=== PATIENT | female | born 1955 | race African-American/Black ===

== ENCOUNTER 2016-11-15 20:58 | Emergency (ER) | payer SELFPAY ==
[~2016-11-15] VITALS: Ht 170.2 cm; Wt 84.5 kg
[2016-11-15 21:13] VITALS: Ht 170.2 cm; Wt 84.5 kg
[2016-11-15 23:38] LABS: URINE BLOOD (Dip) POC 2+ (NEGATIVE)
[2016-11-15] MEDS ORDERED: CEPH-443 PO (23:40)
--- NOTE | 2016-11-15 23:44 | ERD ---
ER Documentation Chief Complaint Date/Time DATE: 11/15/16 TIME: 23:41 Chief Complaint painful/burning urination x 4 days HPI 61-year-old female with no significant past medical history presents to the ED complaining of dysuria and burning with urination that started 5 days ago. States that this feels like her urinary tract infections that she has had in the past. Reports that she has been drinking cranberry juice and cups of water but it has not helped with her symptoms. States that she wiped yesterday there was slight streaks of blood tinged urine. States that she no longer gets her menses. States that she is not sexually active. Denies any vaginal bleeding, vaginal discharge, abdominal pain, nausea, vomiting, diarrhea, melena. ROS All systems reviewed and are negative except as per history of present illness. Medications Home Meds Active Scripts Cephalexin* (Keflex*) 500 Mg Capsule, 500 MG PO QID for 7 Days, CAP Prov:MICHEL MASTERSON PA-C 11/15/16 Allergies Allergies: Coded Allergies: No Known Drug Allergies (Verified Allergy, Unknown, 11/15/16) PMhx/Soc Hx Alcohol Use: No Hx Substance Use: No Hx Tobacco Use: Yes (1 PACK/2 DAYS) Smoking Status: Current every day smoker Physical Exam Vitals Vital Signs Date Time Temp Pulse Resp B/P Pulse Ox O2 Delivery O2 Flow Rate FiO2 11/15/16 21:13 98.9 84 20 142/83 99 Physical Exam Const: [id number], well-nourished. In no acute distress. Head: Atraumatic, normocephalic Eyes: Normal Conjunctiva without injection. No purulent discharge. ENT: Normal external ear, nose. Moist oropharynx without tonsillar exudates. Non -erythematous pharynx. Uvula midline. No drooling. No trismus. Neck: No cervical midline tenderness. Full range of motion. No meningismus. No cervical lymphadenopathy. No JVD. Resp: Clear to auscultation bilaterally. No wheezing, rhonchi, rales, or crackles. No accessory muscle use. No retractions. Cardio: Regular rate and rhythm. No murmurs, rubs or gallops. Abd: Soft, nontender, non distended. Normal bowel sounds. No palpable masses. No rebound tenderness. No guarding. Negative McBurney's point. Negative psoas sign. Negative obturator sign. Skin: No petechiae or rashes Back: No midline tenderness. No CVA tenderness. Ext: No cyanosis, or edema. Neur: Awake and alert. Normal gait. Normal coordination. Psych: Normal Mood and Affect Results 24 hrs Laboratory Tests Test 11/15/16 23:39 Bedside Urine Blood 2+ Bedside Urine Glucose (UA) Negative Bedside Urine Ketones (LAB) Negative Bedside Urine Leukocyte Esterase (L 1+ Bedside Urine Nitrite (LAB) Negative Bedside Urine Protein (LAB) 1+ Bedside Urine pH (LAB) 6.0 Procedures/MDM This is a 61-year-old female with no significant past medical history presents the ED complaining of dysuria and burning with urination. Patient is afebrile and nontoxic-appearing. Patient has normal vital signs. A urine dip was ordered to further evaluate patient. Patient was noted to have hematuria and 1 + leukocyte esterase. Since patient is symptomatic, patient is appropriate for outpatient antibiotics. Patient will be prescribed a course of Keflex for 7 days. Patient does not have any flank pain. No CVA tenderness. Low suspicion for pyelonephritis, septic renal stone, gastritis, GERD, peptic ulcer disease, cholecystitis, choledocholithiasis, cholangitis, pancreatitis, appendicitis, bowel obstruction, ileus, volvulus, hepatitis, perforated viscus, diverticulitis , abdominal hernia, acute abdomen, mesenteric ischemia or other emergent conditions. Discharge medications: Keflex Follow up with primary care physician in 1-2 days for referral to supervisor order takers. Instructed patient to return to the ED sooner for any worsening symptoms. Patient's questions were answered. Patient understood and agreed with discharge plan. Patient discharged stable. Departure Diagnosis: Primary Impression: Urinary tract infection Urinary tract infection type: site unspecified Hematuria presence: with hematuria Qualified Code: N39.0 - Urinary tract infection with hematuria, site unspecified Condition: Stable Patient Instructions: Understanding Urinary Tract Infections (UTIs) Referrals: [facility] YOU HAVE RECEIVED A MEDICAL SCREENING EXAM AND THE RESULTS INDICATE THAT YOU DO NOT HAVE A CONDITION THAT REQUIRES URGENT TREATMENT IN THE EMERGENCY DEPARTMENT. FURTHER EVALUATION AND TREATMENT OF YOUR CONDITION CAN WAIT UNTIL YOU ARE SEEN IN YOUR DOCTORS OFFICE WITHIN THE NEXT 1-2 DAYS. IT IS YOUR RESPONSIBILITY TO MAKE AN APPOINTMENT FOR FOLOW-UP CARE. IF YOU HAVE A PRIMARY DOCTOR --you should call your primary doctor and schedule an appointment IF YOU DO NOT HAVE A PRIMARY DOCTOR YOU CAN CALL OUR PHYSICIAN REFERRAL HOTLINE AT IF YOU CAN NOT AFFORD TO SEE A PHYSICIAN YOU CAN CHOSE FROM THE FOLLOWING [facility] [address] [facility] [address] [facility] [address] [facility] [address] [facility] [address] [facility] [facility] [address] [facility]. [facility] YOU HAVE RECEIVED A MEDICAL SCREENING EXAM AND THE RESULTS INDICATE THAT YOU DO NOT HAVE A CONDITION THAT REQUIRES URGENT TREATMENT IN THE EMERGENCY DEPARTMENT. FURTHER EVALUATION AND TREATMENT OF YOUR CONDITION CAN WAIT UNTIL YOU ARE SEEN IN YOUR DOCTORS OFFICE WITHIN THE NEXT 1-2 DAYS. IT IS YOUR RESPONSIBILITY TO MAKE AN APPOINTMENT FOR FOLOW-UP CARE. IF YOU HAVE A PRIMARY DOCTOR --you should call your primary doctor and schedule and appointment IF YOU DO NOT HAVE A PRIMARY DOCTOR YOU CAN CALL OUR PHYSICIAN REFERRAL HOTLINE AT . IF YOU CAN NOT AFFORD TO SEE A PHYSICIAN YOU CAN CHOSE FROM THE FOLLOWING [facility] INSTITUTIONS: [facility] [address] [place] [address] [facility] [address] [place] [address] [facility] [address] [place] [address] [facility] URGENT CARE/SPECIALTIES Additional Instructions: FOLLOW UP WITH YOUR PRIMARY CARE PHYSICIAN TOMORROW. Return to this facility if you are not improving as expected. MICHEL MASTERSON PA-C Nov 15, 2016 23:44
[2016-11-15 23:51] VITALS: BP 130/78; PULSE 70; RESP 18; TEMP 98.7
[2016-11-15] MEDS ORDERED: FLUC150T17 PO (23:51)
== END 2016-11-16 00:01 | disposition home or self-care (01) ==
LOC: FTE 20:58
DX: N39.0 Urinary tract infection, site not specified (principal); F17.210 Nicotine dependence, cigarettes, uncomplicated
CPT/HCPCS: 81003; 99284